=== PATIENT | female | born 1995 | race Caucasian/White ===

== ENCOUNTER 2020-04-13 11:02 | Outpatient (CLI) | payer MEDICAID, SELFPAY ==
[2020-04-13] VITALS (15 sets, daily range): BP systolic 116–139; BP diastolic 70–94; PULSE 51–127; BMI 31.6
[2020-04-13 11:46] LABS: Basophils Percent Auto 0.3 % (0.2-1.2); Eosinophils Absolute Auto 0.1 K/mm3 (0-0.3); Eosinophils Percent Auto 1.4 % (0-4.4); Hematocrit 37.7 % (37.0-47.0); Hemoglobin 12.7 g/dL (12.0-15.0); Immature Granulocyte Absolute 0.12 K/mm3 (0.00-0.031); Immature Granulocyte Percent A 1.3 % (0-0.5); Lymphocytes Absolute Auto 3.17 K/mm3 (0.9-3.2); Lymphocytes Percent Auto 33.7 % (18.3-44.2); Mean Corpuscular HGB Conc 33.7 g/dl (32-36); Mean Corpuscular Hemoglobin 29.2 pg (26-34); Mean Corpuscular Volume 86.7 fl (80-100); Monocytes Absolute Auto 0.8 K/mm3 (0.1-0.6); Neutrophils Absolute Auto 5.2 K/mm3 (1.3-6.7); Neutrophils Percent Auto 55.3 % (45.5-73.1); Platelet Count Result 162 k/mm3 (150-375); Red Blood Count 4.35 M/mm3 (4.2-5.4); Red Cell Distribution Width 13.5 % (11.5-14.5); White Blood Count 9.4 K/mm3 (4.5-10.0)
--- NOTE | 2020-04-13 11:57 | PC.NURSE ---
Off monitor to void. NST reactive. Will continue monitoring contractions. See OBIX documentation.
[2020-04-13 12:19] LABS: Add Urine Microscopic? NO; Appearance Urine Clear (Clear); Bilirubin Urine Negative (Negative); Blood Urine Negative (Negative); Color Urine Straw (Yellow); Glucose Urine UA Negative (Negative); Ketones Urine Negative (Negative); Leukocyte Esterase Ur Negative LEU/UL (Negative); Nitrate Urine Negative (Negative); Protein Urine Negative (Negative); Urobilinogen Urine Negative mg/dL (<2.0)
[2020-04-13 12:25] LABS: Alanine Aminotransferase 12 U/L (4-35); Albumin Level 3.4 g/dL (3.5-5.1); Alkaline Phosphatase 203 U/L (38-126); Anion Gap 8 mmol/L (8-16); Aspartate Amino Transferase 24 U/L (14-36); Bilirubin,Total 0.3 mg/dL (0.2-1.3); Blood Urea Nitrogen 6 mg/dL (7-17); Calcium 9.2 mg/dL (8.4-10.2); Carbon Dioxide 22 mmol/L (22-30); Chloride 105 mmol/L (98-107); Estimated Glomerular Filt Rate > 60; Glucose 75 mg/dL (65-105); Potassium 4.1 mmol/L (3.4-5.0); Sodium 135 mmol/L (137-145); Uric Acid 6.7 mg/dL (2.5-7.5)
[2020-04-13 12:51] LABS: Creatinine Urine 45.9 mg/dL; Total Protein Urine Random 17 mg/dL; Ur Ttl Prot Creatinine Ratio 0.37 mg/mg (0-0.20)
[2020-04-13] MEDS: BETAMETHASONE SOD PHOS/ACETATE 30 MG/5 ML VIAL 12 MG IM (13:44)
[2020-04-13] MEDS: NIFEdipine 10 MG CAPSULE PO (14:56)
[2020-04-13] MEDS: ACETAMINOPHEN 500 MG TABLET 1000 MG PO (15:51)
[2020-04-13] MEDS: CYCLOBENZAPRINE HCL 10 MG TABLET PO (15:54)
== END 2020-04-13 19:10 | disposition home or self-care (01) ==
LOC: ANHOBOP 11:10 → ANHOBPP 11:11
PROVIDERS: PCP Family Medicine; Visit Provider Obstetrics & Gynecology
DX: O13.9 Gestational [pregnancy-induced] hypertension without significant proteinuria, unspecified trimester (principal)
CPT/HCPCS: 36415; 59025; 80053; 81003; 82570; 84156; 84550; 85025; 96372; 99199; A9270; J0702

== ENCOUNTER 2020-04-14 13:39 | Outpatient (CLI) | payer MEDICAID, SELFPAY ==
[2020-04-14 14:21] VITALS: BP 121/79; PULSE 95
[2020-04-14] MEDS: BETAMETHASONE SOD PHOS/ACETATE 30 MG/5 ML VIAL 12 MG IM (14:23)
== END 2020-04-14 14:30 | disposition home or self-care (01) ==
LOC: ANHOBOP 13:48 → ANHOBPP 14:19
PROVIDERS: PCP Family Medicine; Visit Provider Obstetrics & Gynecology
DX: O13.9 Gestational [pregnancy-induced] hypertension without significant proteinuria, unspecified trimester (principal); Z3A.00 Weeks of gestation of pregnancy not specified
CPT/HCPCS: 81050; 82575; 84156; 96372; 99199; J0702

== ENCOUNTER 2020-04-14 13:51 | Outpatient (NON) | payer MEDICAID, SELFPAY ==
[2020-04-14 15:19] LABS: Collection Time Urine 24 HOURS
[2020-04-14 15:27] LABS: Patient Weight 162 Lbs
[2020-04-14 15:28] LABS: Creatinine Urine 55.2 mg/dL; Total Volume 24 Hour Urine 1900 ml
[2020-04-14 15:35] LABS: Creatinine Clearance Urine 105.8 ml/min (75-125)
[2020-04-14 15:36] LABS: Total Protein Urine 24 Hr 304 MG/DAY (28-141); Total Protein Urine Random 16 mg/dL
== END 2020-04-14 13:52 ==
PROVIDERS: PCP Family Medicine; Visit Provider Obstetrics & Gynecology
DX: O13.9 Gestational [pregnancy-induced] hypertension without significant proteinuria, unspecified trimester (principal); Z3A.00 Weeks of gestation of pregnancy not specified
CPT/HCPCS: 81050; 82575; 84156

== ENCOUNTER 2020-04-17 01:33 | Outpatient (CLI) | payer MEDICAID, SELFPAY ==
[2020-04-17 02:16] VITALS: BP 127/78; PULSE 54
[2020-04-17 02:31] VITALS: BP 127/81; PULSE 52
[2020-04-17 03:00] VITALS: TEMP 36.3; BMI 31.4
[2020-04-17] MEDS: ONDANSETRON HCL ODT 4 MG TABLET PO (03:06)
[2020-04-17 03:08] VITALS: PULSE 59; O2SAT 98
[2020-04-17 03:23] VITALS: BP 126/78; PULSE 52
[2020-04-17 03:26] LABS: Basophils Absolute Auto 0.1 K/mm3 (0.0-0.1); Basophils Percent Auto 0.7 % (0.2-1.2); Eosinophils Absolute Auto 0.1 K/mm3 (0-0.3); Eosinophils Percent Auto 1.1 % (0-4.4); Hematocrit 35.3 % (37.0-47.0); Hemoglobin 11.9 g/dL (12.0-15.0); Immature Granulocyte Absolute 0.68 K/mm3 (0.00-0.031); Immature Granulocyte Percent A 5.6 % (0-0.5); Immature Platelet Fraction Pct 22.3 % (0.9-11.2); Lymphocytes Absolute Auto 3.09 K/mm3 (0.9-3.2); Lymphocytes Percent Auto 25.3 % (18.3-44.2); Mean Corpuscular HGB Conc 33.7 g/dl (32-36); Mean Corpuscular Hemoglobin 29.5 pg (26-34); Mean Corpuscular Volume 87.4 fl (80-100); Mean Platelet Volume 13.8 fl (7.4-10.4); Monocytes Absolute Auto 1.3 K/mm3 (0.1-0.6); Monocytes Percent Auto 10.7 % (2.6-8.5); Neutrophils Absolute Auto 6.9 K/mm3 (1.3-6.7); Neutrophils Percent Auto 56.6 % (45.5-73.1); Nucleated Red Blood Cells Absolute Auto 0.1 K/mm3 (0.0-0.012); Platelet Count Result 165 k/mm3 (150-375); Red Blood Count 4.04 M/mm3 (4.2-5.4); Red Cell Distribution Width 13.7 % (11.5-14.5); White Blood Count 12.2 K/mm3 (4.5-10.0)
[2020-04-17 03:31] VITALS: BP 127/77; PULSE 52
[2020-04-17 03:37] LABS: Alanine Aminotransferase 12 U/L (4-35); Albumin Level 3.1 g/dL (3.5-5.1); Alkaline Phosphatase 188 U/L (38-126); Anion Gap 5 mmol/L (8-16); Aspartate Amino Transferase 27 U/L (14-36); Bilirubin,Total 0.3 mg/dL (0.2-1.3); Blood Urea Nitrogen 18 mg/dL (7-17); Calcium 8.9 mg/dL (8.4-10.2); Carbon Dioxide 25 mmol/L (22-30); Chloride 105 mmol/L (98-107); Estimated Glomerular Filt Rate > 60; Glucose 75 mg/dL (65-105); Potassium 4.2 mmol/L (3.4-5.0); Sodium 135 mmol/L (137-145); Uric Acid 7.5 mg/dL (2.5-7.5)
[2020-04-17 04:26] LABS: Add Urine Microscopic? YES; Appearance Urine Clear (Clear); Bilirubin Urine Negative (Negative); Blood Urine Negative (Negative); Color Urine Colorless (Yellow); Glucose Urine UA Negative (Negative); Ketones Urine Negative (Negative); Leukocyte Esterase Ur Trace LEU/UL (NEGATIVE); Nitrate Urine Negative (Negative); Protein Urine Negative (Negative); RBC Urine 0-2 /hpf (0-2); Specific Grav Ur 1.006 (1.001-1.035); Squamous Epithelial Cell Urine Rare /hpf (Few); Urobilinogen Urine Negative mg/dL (<2.0)
== END 2020-04-17 04:58 | disposition home or self-care (01) ==
LOC: ANHOBPP 04:53 → ANHOBOP 04-19 13:04 → ANHOBPP 04-19 13:04
PROVIDERS: Obstetrics & Gynecology; PCP Family Medicine; Visit Provider Obstetrics & Gynecology
DX: O13.9 Gestational [pregnancy-induced] hypertension without significant proteinuria, unspecified trimester (principal); Z3A.00 Weeks of gestation of pregnancy not specified
CPT/HCPCS: 36415; 80053; 81001; 84550; 85025; 85055; 87086; 87088; 99199; A9270

== ENCOUNTER 2020-04-26 06:06 | Inpatient (IN) | payer MEDICAID, SELFPAY ==
[2020-04-26] VITALS (183 sets, daily range): BP systolic 60–175; BP diastolic 34–143; PULSE 25–243; RESP 13–22; TEMP 36.1–36.8; O2SAT 94–100; BMI 32.7
[2020-04-26 07:00] LABS: Basophils Percent Auto 0.3 % (0.2-1.2); Eosinophils Absolute Auto 0.1 K/mm3 (0-0.3); Eosinophils Percent Auto 0.9 % (0-4.4); Hematocrit 38.9 % (37.0-47.0); Hemoglobin 13.1 g/dL (12.0-15.0); Lymphocytes Absolute Auto 3.27 K/mm3 (0.9-3.2); Mean Corpuscular HGB Conc 33.7 g/dl (32-36); Mean Corpuscular Hemoglobin 29.3 pg (26-34); Mean Platelet Volume 13.3 fl (7.4-10.4); Monocytes Absolute Auto 0.6 K/mm3 (0.1-0.6); Monocytes Percent Auto 6.3 % (2.6-8.5); Neutrophils Absolute Auto 5.5 K/mm3 (1.3-6.7); Neutrophils Percent Auto 57.5 % (45.5-73.1); Platelet Count Result 161 k/mm3 (150-375); Red Blood Count 4.47 M/mm3 (4.2-5.4); Red Cell Distribution Width 14.4 % (11.5-14.5); White Blood Count 9.6 K/mm3 (4.5-10.0)
[2020-04-26] MEDS: OXYTOCIN 30 UNITS/NS 500 ML 30 UNITS/500 ML BAG 6 UNITS IV CONT (07:11)
[2020-04-26] MEDS: LACTATED RINGERS 1,000 ML 125 ML IV CONT ×2 (07:11→07:39)
[2020-04-26 07:14] LABS: Alanine Aminotransferase 16 U/L (4-35); Albumin Level 3.2 g/dL (3.5-5.1); Alkaline Phosphatase 204 U/L (38-126); Anion Gap 7 mmol/L (8-16); Aspartate Amino Transferase 27 U/L (14-36); Bilirubin,Total 0.3 mg/dL (0.2-1.3); Blood Urea Nitrogen 13 mg/dL (7-17); Calcium 9.1 mg/dL (8.4-10.2); Carbon Dioxide 21 mmol/L (22-30); Chloride 106 mmol/L (98-107); Estimated Glomerular Filt Rate > 60; Glucose 141 mg/dL (65-105); Sodium 134 mmol/L (137-145); Uric Acid 7.8 mg/dL (2.5-7.5)
--- NOTE | 2020-04-26 07:29 | WPDOBADMIT ---
Obstetrics - Admit Note Admission Note: record reviewed. No pertinent additions to the history and/or any subsequent changes in the physical findings that are not consistent with the expected course of the were found. Additions to the history and/or subsequent changes in the physical findings follow. G1 at 37.0 with di/di twins, SGA, mild PreE. GBS neg. Pitocin, epidural, magnesium. Uric acid elevated. Remainder labs normal. AROM done, 490/0 posterior. clear fluid. FHT Category 1 x2.
--- NOTE | 2020-04-26 07:41 | WPDANESEPPF ---
Anes - Initial Pre Proc Eval Procedure: labor epidural Date/Time: 04/26/20 07:41 Surgeon: Kayce Rivera MD Pre Op Diagnosis: labor pain Pre Op Diagnosis: IOL Patient Data Age: 24 Gender: F Height: Weight: Last Vital Signs Pulse 87 04/26/20 07:40 BP 142/80 H 04/26/20 07:40 Pulse Ox 97 04/26/20 07:41 Allergies Allergy/AdvReac Type Severity Reaction Status Date / Time No Known Allergies Allergy Verified 04/16/20 14:21 Home Medications Medication Instructions Recorded Confirmed Type PNV cmb#95-ferrous fumarate-FA 1 tablet PO DAILY 04/13/20 04/13/20 History [] aspirin 81 mg PO DAILY 04/13/20 04/13/20 History ferrous sulfate 143 mg PO DAILY 04/13/20 04/13/20 History ondansetron HCl [Zofran] 4 mg PO Q6H PRN 04/16/20 04/16/20 History nitrofurantoin monohyd/m-cryst 100 mg PO Q12H #14 cap 04/17/20 Rx [Macrobid] Laboratory Tests 04/26/20 04/26/20 04/26/20 06:48 06:48 06:48 WBC 9.6 K/mm3 K/mm3 (4.5-10.0) RBC 4.47 M/mm3 M/mm3 (4.2-5.4) Hgb 13.1 g/dL g/dL (12.0-15.0) Hct 38.9 % % (37.0-47.0) MCV 87.0 fl fl (80-100) MCH 29.3 pg pg (26-34) MCHC 33.7 g/dl g/dl (32-36) RDW 14.4 % % (11.5-14.5) Plt Count 161 k/mm3 k/mm3 (150-375) MPV 13.3 fl H fl (7.4-10.4) Immature Gran % (Auto) 1.0 % H % (0-0.5) Neut % (Auto) 57.5 % % (45.5-73.1) Lymph % (Auto) 34.0 % % (18.3-44.2) [place] % (Auto) 6.3 % % (2.6-8.5) Eos % (Auto) 0.9 % % (0-4.4) Baso % (Auto) 0.3 % % (0.2-1.2) Lymph # (Auto) 3.27 K/mm3 H K/mm3 (0.9-3.2) [place] # (Auto) 0.6 K/mm3 K/mm3 (0.1-0.6) Eos # (Auto) 0.1 K/mm3 K/mm3 (0-0.3) Baso # (Auto) 0.0 K/mm3 K/mm3 (0.0-0.1) Abs Immat Gran (auto) 0.10 K/mm3 H K/mm3 (0.00-0.031) Absolute Neuts (auto) 5.5 K/mm3 K/mm3 (1.3-6.7) Absolute Nucleated RBC 0.0 K/mm3 K/mm3 (0.0-0.012) Nucleated RBC % 0.0 % % (0.0-0.2) % Immature Plt Fraction 19.0 % H % (0.9-11.2) Sodium 134 mmol/L L mmol/L (137-145) Potassium 4.0 mmol/L mmol/L (3.4-5.0) Chloride 106 mmol/L mmol/L (98-107) Carbon Dioxide 21 mmol/L L mmol/L (22-30) Anion Gap 7 mmol/L L mmol/L (8-16) BUN 13 mg/dL D mg/dL (7-17) Creatinine 0.90 mg/dL mg/dL (0.7-1.0) Estim Creat Clear Calc Not Reportable Estimated GFR > 60 (59 - ) Glucose 141 mg/dL H mg/dL (65-105) Uric Acid 7.8 mg/dL H mg/dL (2.5-7.5) Calcium 9.1 mg/dL mg/dL (8.4-10.2) Total Bilirubin 0.3 mg/dL mg/dL (0.2-1.3) AST 27 U/L U/L (14-36) ALT 16 U/L U/L (4-35) Alkaline Phosphatase 204 U/L H U/L (38-126) Total Protein 6.0 g/dL L g/dL (6.3-8.2) Albumin 3.2 g/dL L g/dL (3.5-5.1) RPR Pending Patient hx anesthesia problems: none Family hx anesthesia problems: none PMFSH Past Medical History Medical History (Updated 04/26/20 @ 07:42 by Yasir Montes DO) Pre-eclampsia Family History Family History (Updated 04/16/20 @ 14:26 by Lima Matos RN) Grandparent Diabetes mellitus Cancer PTSD (post-traumatic stress disorder) Mother Seizures Other Schizoaffective disorder Social History Social History Substance use: never Spiritual care concerns: No Anes - Eval Final PreProcedure Day of Procedure 04/26/20 07:41 Patient weight: obese ASA classification: III Anesthesia type and monitoring: regional epidural Informed Consent: The patient's anesthetic plan and its attendant risks and benefits were discussed with the patient/family/POA. Questions were solicited and answers provided to the satisfaction of the patient/family/POA.
[2020-04-26] MEDS: MAGNESIUM SULF 4 GM/WATER100ML 4 GM/100 ML BAG IVPB (08:44)
[2020-04-26] MEDS: MAGNESIUM SULF 20GM/WATER500ML 500 ML 50 MG IV CONT ×2 (09:12→23:07)
[2020-04-26 13:03] LABS: Rapid Plasma Reagin Non-Reactive (NonReactive)
[2020-04-26] MEDS: fentaNYL CITRATE INJ (*CRX) 100 MCG/2 ML VIAL 50 MCG IV PUSH (13:11)
--- NOTE | 2020-04-26 16:35 | P.PCNOB_ITS ---
OB - Delivery Note Procedure Delivery date: 04/26/20 Procedure: x2 events: Pre-Eclampsia Intrapartal events: Mild Preeclampsia and Multiple Gestation Induction method: AROM and per pitocin protocol Delivery monitor: external FHT and external uterine Route of delivery: Episiotomy description: None Laceration Description: Periurethral and Vaginal - 2nd Degree Delivery repair: vicryl Specimen: Yes (cord blood x2, placenta to pathology) Quantitative Blood Loss (ml): 600 Anesthesia type: Epidural Complications: none Narrative: In the operating room with double setup, and with adequate expulsive efforts by the mother, the Baby A's head was delivered OA. The baby's anterior shoulder was delivered under the pubic symphysis without difficulty. The posterior shoulder and the rest of the baby delivered without difficulty. The infant was placed on the mothers chest and suctioned and stimulated. The cord was clamped and cut after 30 seconds. THe US was used to verify Baby B was presenting vertex as well. The head was well applied to the cervix and AROM was performed with clear fluid. Cervix was 8cm, but was complete again within a minute and pushing resumed. Baby B's head was delivered SHANNAN. The anterior shoulder and the rest of the baby delivered easily. Mother and babies both stable. The placentas delivered spontaneously. Pitocin and hemabate were given for bleeding and uterine tone was firm after a few minutes. A small second degree and a right periclitoral laceration were repaired in normal fashion. [place] Baby Date of : 04/26/20 Time of : 15:11 Weeks of gestation at delivery: 37 gender: Male Weight (pounds): 4 Weight (ounces): 9 presentation: vertex position: Left Occiput Anterior Placenta delivery description: Spontaneous cord vessel description: 3 Vessels Narrative: Baby B born at 1518, boy, weight 5-12, OA.
[2020-04-26] MEDS: fentaNYL CITRATE INJ (*CRX) 100 MCG/2 ML VIAL IV PUSH (17:03)
--- NOTE | 2020-04-26 17:20 | PM.OBPNVD ---
OB - PN: Subj Subjective Date/time seen: 04/26/20 17:20 Addendum to delivery note. Prior to my leaving the hospital, the RN noted a hematoma. At bedside to evaluate. 8-9cm hematoma of right labia minora extending to labia majora, taught, expanding in size over 10 min watching. Evacuation of vulvar hematoma done, see procedure note. Following procedure, area of hematoma was no longer taut, was about 5-6cm in size, still very edematous, but not expanding or actively bleeding out of the drained area. Ice applied. JOSÉ ANTONIO Dempsey updated. Chavez in. OB - PN: Obj Data Labs CBC & Chem 7: 04/26/20 06:48 04/26/20 06:48 Labs: Laboratory Results - last 24 hr 04/26/20 04/26/20 04/26/20 06:48 06:48 06:48 WBC 9.6 RBC 4.47 Hgb 13.1 Hct 38.9 MCV 87.0 MCH 29.3 MCHC 33.7 RDW 14.4 Plt Count 161 MPV 13.3 H Immature Gran % (Auto) 1.0 H Neut % (Auto) 57.5 Lymph % (Auto) 34.0 [place] % (Auto) 6.3 Eos % (Auto) 0.9 Baso % (Auto) 0.3 Lymph # (Auto) 3.27 H [place] # (Auto) 0.6 Eos # (Auto) 0.1 Baso # (Auto) 0.0 Abs Immat Gran (auto) 0.10 H Absolute Neuts (auto) 5.5 Absolute Nucleated RBC 0.0 Nucleated RBC % 0.0 % Immature Plt Fraction 19.0 H Sodium Potassium Chloride Carbon Dioxide Anion Gap BUN Creatinine Estim Creat Clear Calc Estimated GFR Glucose Uric Acid Calcium Total Bilirubin AST ALT Alkaline Phosphatase Total Protein Albumin RPR Non-reactive Blood Type O Positive Antibody Screen Negative 04/26/20 06:48 WBC RBC Hgb Hct MCV MCH MCHC RDW Plt Count MPV Immature Gran % (Auto) Neut % (Auto) Lymph % (Auto) [place] % (Auto) Eos % (Auto) Baso % (Auto) Lymph # (Auto) [place] # (Auto) Eos # (Auto) Baso # (Auto) Abs Immat Gran (auto) Absolute Neuts (auto) Absolute Nucleated RBC Nucleated RBC % % Immature Plt Fraction Sodium 134 L Potassium 4.0 Chloride 106 Carbon Dioxide 21 L Anion Gap 7 L BUN 13 D Creatinine 0.90 Estim Creat Clear Calc Not Reportable Estimated GFR > 60 Glucose 141 H Uric Acid 7.8 H Calcium 9.1 Total Bilirubin 0.3 AST 27 ALT 16 Alkaline Phosphatase 204 H Total Protein 6.0 L Albumin 3.2 L RPR Blood Type Antibody Screen OB - PN A/P Time Spent With Patient Time: Total time spent is greater than 50% in coordination of care (as documented) at patient's floor/unit and/or counseling patient:
[2020-04-26] MEDS: ONDANSETRON INJ 4 MG/2 ML VIAL IV PUSH (17:23)
--- NOTE | 2020-04-26 17:25 | P.OP_ITS ---
Procedure Note - Detailed Date of procedure: 04/26/20 Pre-op diagnosis: IOL Post-op diagnosis: same Procedure performed: INcision and drainage of right labial hematoma Description of procedure: Due to 9cm enlarging hematoma within the hour after delivery, the decision was made to drain the hematoma bedside. Fentanyl IV was given. 3cc local instilled at fluctuant area of hematoma and stab incision made with 11 blade. About 100cc of blood under pressure drained. Following this, the hematoma area was no longer taut, though significant edema remained. The hematoma was watched for 10 more minutes and was noted to not be expanding anymo re, the skin over it remained non-taut, and the incision was not bleeding. Packing was not done due to hemostasis at this time. Chavez was placed to stay in overnight. Implants: none Anesthesia: local Surgeon: Kayce Rivera MD Estimated blood loss (mL): 100 Drains: No Packing: No Pathology: none sent Complications: No immediate complications Condition: stable Disposition: floor
[2020-04-26] MEDS: IBUPROFEN 600 MG TABLET PO (18:19)
[2020-04-26] MEDS: HYDROcodone/acetaminophen (*CRX) 5-325 MG TABLET 1 TAB PO (18:20)
--- NOTE | 2020-04-26 19:36 | PM.IMHP ---
H&P: HPI History of Present Illness Date/Time: 04/26/20 19:36 Chief Complaint: Vulvar pain Narrative: Selena Barnett is a 24 year old female who is in the immediate . Who had a hematoma on the right roopa vulva. After the hematoma was drained by another provider she was observed. Over several hours the hematoma expanded again. The patient experiencing increasing pain in the right vulva. There has been normal vaginal bleeding. The patient did experience some hypotension and dizziness at 1 point during her recovery. She is on magnesium sulfate. She has not lost more than 700 cc of blood at this point. She denies any fever or chills. She denies any nausea, vomiting. Review of Systems Constitutional: Constitutional: Reports no additional constitutional complaints, Denies fatigue, Denies headache(s), Denies lethargy and Denies weakness Eyes: Eyes: Reports no additional eye complaints, Denies blurry vision and Denies photophobia ENT: Reports as per HPI, Denies headache(s) and Denies neck pain Cardiovascular: Cardiovascular: Denies chest pain, Denies diaphoresis, Denies leg edema, Denies palpitations and Denies dyspnea Respiratory: Respiratory: Denies hemoptysis, Denies dyspnea and Denies wheezing Gastrointestinal: Gastrointestinal: Denies abdominal pain, Denies melena, Denies bloating, Denies hematochezia, Denies nausea and Denies vomiting Genitourinary: Genitourinary: Reports no additional female genitourinary complaints Musculoskeletal: Musculoskeletal: Denies joint swelling, Denies neck pain, Denies numbness and Denies stiffness Neurologic: Denies Abnormal speech present, Denies confusion, Denies headache(s), Denies numbness and Denies weakness Psychiatric: Psychiatric: Denies anxiety, Denies confusion, Denies depression, Denies homicidal ideation and Denies suicidal ideation Endocrine: Endocrine: Denies fatigue and Denies palpitations Allergic/Immunologic: Allergic/Immunologic: Denies wheezing PMFSH Past Medical History Medical History (Updated 04/26/20 @ 19:41 by Toan Coronel MD) Pre-eclampsia Family History Family History (Updated 04/16/20 @ 14:26 by Lima Matos RN) Grandparent Diabetes mellitus Cancer PTSD (post-traumatic stress disorder) Mother Seizures Other Schizoaffective disorder Social History Social History Smoking status: Never smoker Second hand tobacco smoke exposure: No Substance use: never Spiritual care concerns: No Meds Home Medications and Allergies Home Medications Medication Instructions Recorded Confirmed Type PNV cmb#95-ferrous fumarate-FA 1 tablet PO DAILY 04/13/20 04/26/20 History [] aspirin 81 mg PO DAILY 04/13/20 04/26/20 History ferrous sulfate 143 mg PO DAILY 04/13/20 04/26/20 History ondansetron HCl [Zofran] 4 mg PO Q6H PRN 04/16/20 04/16/20 History nitrofurantoin monohyd/m-cryst 100 mg PO Q12H #14 cap 04/17/20 04/26/20 Rx [Macrobid] Allergies Allergy/AdvReac Type Severity Reaction Status Date / Time No Known Allergies Allergy Verified 04/16/20 14:21 Vital Signs Vital Signs - 24 hr 04/26/20 06:33 04/26/20 06:45 04/26/20 07:00 Temperature Pulse Rate 90 86 97 Respiratory Rate Blood Pressure 137/96 H 135/90 141/92 H Pulse Oximetry 04/26/20 07:16 04/26/20 07:26 04/26/20 07:27 Temperature Pulse Rate 75 84 Respiratory Rate Blood Pressure 147/98 H 163/97 H Pulse Oximetry 97 04/26/20 07:29 04/26/20 07:31 04/26/20 07:33 Temperature Pulse Rate 81 85 Respiratory Rate Blood Pressure 152/110 H 131/96 H Pulse Oximetry 99 04/26/20 07:36 04/26/20 07:38 04/26/20 07:39 Temperature Pulse Rate 87 85 Respiratory Rate Blood Pressure 151/93 H 151/82 H Pulse Oximetry 97 04/26/20 07:40 04/26/20 07:41 04/26/20 07:42 Temperature Pulse Rate 87 85 Respiratory Rate Blood Pressure 142/80 H 135/83 Pulse Oximetry 97 04/26/20 07:45
--- NOTE | 2020-04-26 19:49 | WPDANESEPP ---
Anes - Eval Pre Procedure Procedure: I and D right labial hematoma Date/Time: 04/26/20 19:49 Surgeon: Berna Preop Diagnosis: right labial hematoma Pre Op Diagnosis: IOL Patient Data Age: 24 Gender: F Height: 1.52 m Weight: 76 kg Last Vital Signs Temp 36.1 C L 04/26/20 17:00 Pulse 91 04/26/20 19:45 Resp 16 04/26/20 08:45 BP 128/96 H 04/26/20 19:45 Pulse Ox 100 04/26/20 19:48 Allergies Allergy/AdvReac Type Severity Reaction Status Date / Time No Known Allergies Allergy Verified 04/16/20 14:21 Home Medications Medication Instructions Recorded Confirmed Type PNV cmb#95-ferrous fumarate-FA 1 tablet PO DAILY 04/13/20 04/26/20 History [] aspirin 81 mg PO DAILY 04/13/20 04/26/20 History ferrous sulfate 143 mg PO DAILY 04/13/20 04/26/20 History ondansetron HCl [Zofran] 4 mg PO Q6H PRN 04/16/20 04/16/20 History nitrofurantoin monohyd/m-cryst 100 mg PO Q12H #14 cap 04/17/20 04/26/20 Rx [Macrobid] Laboratory Tests 04/26/20 04/26/20 04/26/20 06:48 06:48 06:48 WBC 9.6 K/mm3 K/mm3 (4.5-10.0) RBC 4.47 M/mm3 M/mm3 (4.2-5.4) Hgb 13.1 g/dL g/dL (12.0-15.0) Hct 38.9 % % (37.0-47.0) MCV 87.0 fl fl (80-100) MCH 29.3 pg pg (26-34) MCHC 33.7 g/dl g/dl (32-36) RDW 14.4 % % (11.5-14.5) Plt Count 161 k/mm3 k/mm3 (150-375) MPV 13.3 fl H fl (7.4-10.4) Immature Gran % (Auto) 1.0 % H % (0-0.5) Neut % (Auto) 57.5 % % (45.5-73.1) Lymph % (Auto) 34.0 % % (18.3-44.2) [place] % (Auto) 6.3 % % (2.6-8.5) Eos % (Auto) 0.9 % % (0-4.4) Baso % (Auto) 0.3 % % (0.2-1.2) Lymph # (Auto) 3.27 K/mm3 H K/mm3 (0.9-3.2) [place] # (Auto) 0.6 K/mm3 K/mm3 (0.1-0.6) Eos # (Auto) 0.1 K/mm3 K/mm3 (0-0.3) Baso # (Auto) 0.0 K/mm3 K/mm3 (0.0-0.1) Abs Immat Gran (auto) 0.10 K/mm3 H K/mm3 (0.00-0.031) Absolute Neuts (auto) 5.5 K/mm3 K/mm3 (1.3-6.7) Absolute Nucleated RBC 0.0 K/mm3 K/mm3 (0.0-0.012) Nucleated RBC % 0.0 % % (0.0-0.2) % Immature Plt Fraction 19.0 % H % (0.9-11.2) Sodium Potassium Chloride Carbon Dioxide Anion Gap BUN Creatinine Estim Creat Clear Calc Estimated GFR Glucose Uric Acid Calcium Total Bilirubin AST ALT Alkaline Phosphatase Total Protein Albumin RPR Non-reactive (NonReactive) Blood Type O Positive Antibody Screen Negative 04/26/20 06:48 WBC RBC Hgb Hct MCV MCH MCHC RDW Plt Count MPV Immature Gran % (Auto) Neut % (Auto) Lymph % (Auto) [place] % (Auto) Eos % (Auto) Baso % (Auto) Lymph # (Auto) [place] # (Auto) Eos # (Auto) Baso # (Auto) Abs Immat Gran (auto) Absolute Neuts (auto) Absolute Nucleated RBC Nucleated RBC % % Immature Plt Fraction Sodium 134 mmol/L L mmol/L (137-145) Potassium 4.0 mmol/L mmol/L (3.4-5.0) Chloride 106 mmol/L mmol/L (98-107) Carbon Dioxide 21 mmol/L L mmol/L (22-30) Anion Gap 7 mmol/L L mmol/L (8-16) BUN 13 mg/dL D mg/dL (7-17) Creatinine 0.90 mg/dL mg/dL (0.7-1.0) Estim Creat Clear Calc Not Reportable Estimated GFR > 60 (59 - ) Glucose 141 mg/dL H mg/dL (65-105) Uric Acid 7.8 mg/dL H mg/dL (2.5-7.5) Calcium 9.1 mg/dL mg/dL (8.4-10.2) Total Bilirubin 0.3 mg/dL mg/dL (0.2-1.3) AST 27 U/L U/L (14-36) ALT 16 U/L U/L (4-35) Alkaline Phosphatase 204 U/L H U/L (38-126) Total Protein 6.
[2020-04-26] MEDS: ceFAZolin SODIUM 1 GM VIAL 2 GM IV PUSH (20:52)
[2020-04-26] MEDS: LIDO 1%/EPINEPHRINE 1:100,000 50 ML VIAL INFILTRATE (21:09)
--- NOTE | 2020-04-26 21:27 | PM.PROC ---
Procedure Note - Detailed Date of procedure: 04/26/20 Pre-op diagnosis: hematoma of the vulva Post-op diagnosis: same Procedure performed: Incision, evacuation and hemostasis of a vulvar hematoma Description of procedure: The patient is taken operating room. She was prepped and draped in dorsal lithotomy position after induction of mac anesthesia. The skin was injected around the hematoma with lidocaine. A 7-8cm incision was made along the length of the hematoma. Large clots were removed from they inside of the hematoma. The hematoma cavity extended up into the mons pubis. The active bleeding area was seen in the medial wall of the hematoma cavity. Sutures were placed in this area was made hemostatic. These were [id number] sutures of 0 Vicryl. The cavity was irrigated with copious amounts of normal saline. A large locking suture of 0 Vicryl was placed along the length of the incision to close it. It incorporated as much deep tissues could be reached. A [id number] suture was also placed at the bleeding posterior introitus repair. Anesthesia: MAC Surgeon: Toan Coronel MD Estimated blood loss (mL): 200 Drains: No Packing: No Complications: No immediate complications Condition: stable Disposition: floor Findings: Measured by the nurse with a tape measure the hematoma was 10 x 5 cm, some of this was edema from the lateral labia, there were clots filling the hematoma defect, there was a large clot in the vagina encompassing approximately 200 cc of blood that was not blood lost in the case.
[2020-04-26] MEDS: LACTATED RINGERS 1,000 ML 75 ML IV CONT (23:06)
[2020-04-27] VITALS (16 sets, daily range): BP systolic 93–159; BP diastolic 51–95; PULSE 86–127; RESP 12–18; TEMP 36.5–37.6; O2SAT 91–99
--- NOTE | 2020-04-27 03:05 | PC.NURSE ---
Addendum entered by Mahesh Portillo RN 04/27/20 03:09: 2010 THIS NOTE SHOULD BE TIMED 2009 Original Note: Patient to OR for I&D of labial hematoma by OR staff. SEE OBIX documentation.
--- NOTE | 2020-04-27 03:12 | PC.NURSE ---
Addendum entered by Mahesh Portillo RN 04/27/20 03:13: 2205 04/26/20 NOTE SHOULD BE TIMED AT THIS TIME. Original Note: Report from OR. Pt to remain on Labor floor per Dr. Coronel request for monitoring.
[2020-04-27] MEDS: HYDROcodone/acetaminophen (*CRX) 5-325 MG TABLET 1 TAB PO ×2 (04:36→13:49)
[2020-04-27 05:08] LABS: Hematocrit 22.8 % (37.0-47.0); Hemoglobin 7.7 g/dL (12.0-15.0)
[2020-04-27] MEDS: BENZOCAINE 20% AER SPR (*SP) 56 GM CAN 1 SPRAY TOPICAL (07:37)
[2020-04-27] MEDS: WITCH HAZEL 40 PADS 1 PAD TOPICAL (07:37)
[2020-04-27] MEDS: IBUPROFEN 600 MG TABLET PO ×3 (07:53→19:47)
--- NOTE | 2020-04-27 07:56 | WPDANESPN ---
Anes - Prog Note Post-Op Date/Time: 04/27/20 07:56 Cardiovascular status: normal Respiratory status: normal Airway patency: baseline Mental status: baseline Post-Op hydration status: normal Vital Signs: Last Vital Signs Temp 37.6 C 04/27/20 05:08 Pulse 117 H 04/27/20 06:59 Resp 16 04/27/20 05:02 BP 128/71 04/27/20 06:59 Pulse Ox 100 04/26/20 21:56 Pain Score (VAS): no complaints I/O: Intake & Output 04/26/20 04/26/20 04/27/20 15:59 23:59 07:59 Intake Total 100 1500 1751 Output Total 1360 2400 Balance 100 140 -649 Laboratory Tests 04/27/20 04:38 04/26/20 06:48 04/26/20 04/26/20 04/27/20 06:48 06:48 04:38 Hgb 7.7 L D Hct 22.8 L RPR Non-reactive Crossmatch See Detail Post-procedural complaints: none Patient Feedback: Patient satisfied with anesthetic care.
--- NOTE | 2020-04-27 07:57 | PC.NURSE ---
Dr. Rivera in to see and assess pt.
--- NOTE | 2020-04-27 07:57 | WPDANLDPN2 ---
Anes-Prog Note L&D Date/Time: 04/27/20 07:57 Comfortable throughout: labor and delivery Neuraxial method: epidural Neuro status: Neuro function grossly intact. Cardiovascular status: normal Respiratory status: normal Airway patency: baseline Mental status: baseline Post-Op hydration status: normal Vital Signs: Last Vital Signs Temp 37.6 C 04/27/20 05:08 Pulse 117 H 04/27/20 06:59 Resp 16 04/27/20 05:02 BP 128/71 04/27/20 06:59 Pulse Ox 100 04/26/20 21:56 Pain score (VAS): no complaints I/O: Intake & Output 04/26/20 04/26/20 04/27/20 15:59 23:59 07:59 Intake Total 100 1500 1751 Output Total 1360 2400 Balance 100 140 -649 Post-procedural complaints: none Patient feedback: Patient satisfied with anesthetic care.
--- NOTE | 2020-04-27 08:01 | P.PNOB_ITS ---
OB - PN: Subj Subjective Date/time seen: 04/27/20 08:01 Patient comments: pain well controlled baby status: other (baby A doing well, B doing well but not eating as well.) feeding status: breast and bottle feeding Narrative: Last night went to OR for evacuation of hematoma per Dr. Coronel. Overnight did well. UOP 1600cc/about 10 hours. BPs variable, will be increased when excitable. She is anxious to be up and about. Hgb dropped from 13 to 7 overall. She has a mild HALE that just started this am. Per RN appearance of right labia improved overnight. Now some swelling in left labia as well. OB - PN: Obj Data Labs CBC & Chem 7: 04/27/20 04:38 04/26/20 06:48 Labs: Laboratory Results - last 24 hr 04/26/20 04/26/20 04/27/20 06:48 06:48 04:38 Hgb 7.7 L D Hct 22.8 L RPR Non-reactive Crossmatch See Detail OB - PN A/P Plan day: 1 Comments: Twins, preE, right labial hematoma mag off this am jimenez to stay in until at least this evening, will reeval at 4p will monitor BPs- somewhat labile, may need antihypertensive. Will transfuse 2 units pRBCs given drop of almost half blood volume. Discussed RBA. Healing will be faster and she will be better able to care for her babies. Discussed she needs to rest and remain in bed most of day to help vulvar edema. May do bed bath and wash up at sink. Continue ice continuously. Repeat CBC 2 hours after transfusion. Discussed POC with current RNs, pt, and director industrial relations. Time Spent With Patient Time: Total time spent is greater than 50% in coordination of care (as documented) at patient's floor/unit and/or counseling patient: Exam Const: General: cooperative, alert and awake Orientation/consciousness: oriented to person, oriented to place and oriented to time GI: Inspection: normal to inspection GI Palp: Yes Other GI palpation findings present (Fundus firm at umbilicus) : External Female Exam: lesion (right labial incision intact. ) and other (bilateral labia edematous with some ecchymosis near clitoris. )
--- NOTE | 2020-04-27 08:10 | PC.NURSE ---
Pt transferred to OB room 281 per bed with personal belongings and both twins.
[2020-04-27] MEDS: SODIUM CHLORIDE 0.9% IV 1,000 ML 125 ML (08:44)
--- NOTE | 2020-04-27 09:09 | OBPPTRN ---
0811 Patient transferred to post room #281 via bed. Oriented to unit, room, information board, rooming in, admission packet and security measures. Patient verbalizes understanding.
--- NOTE | 2020-04-27 12:33 | PC.NURSE ---
1315 note; nurse observed baby B at breast earlier today. Baby initially latched shallow; nurse assisted mother to get infant to deeper latch, mother reported as tuggy . baby maintained latch and demonstrated very vigorous, rhythmic sucking. Mother alternates sides this baby nurses on. Baby A has not latched to feed until a feeding this morning; mother reports he took a little formula, then attempted to latch, and she reports he did nurse; pt's nurse states baby was latched but was not sucking when she observed the feeding, only holding nipple in his mouth. Baby then given more formula. Mother will continue to nurse baby B q feeding, and will attempt briefly with Baby A, but then continue regular formula feedings for him. Mother has asked about pumping; She is tired and has received a blood transfusion today. Breast pump brought in for mother to start pumping later today. Pt's sister present. Nurse reviewed with the sister, pump set up and suggestion that mother pump one time this afternoon a little later, and then again tonight, and then re-evaluate tomorrow to determine pumping needs. Today, mother needs more rest, and baby B is nursing effectively. Pt's sister in agreement with this plan.
[2020-04-27] MEDS: HYDROcodone/acetaminophen (*CRX) 10-325 MG TABLET 1 TAB PO ×2 (16:35→19:48)
[2020-04-27] MEDS: DOCUSATE SODIUM 100 MG CAPSULE PO (16:35)
[2020-04-27] MEDS: POLYSACCHARIDE IRON COMPLEX 150 MG CAPSULE PO (16:35)
[2020-04-27 19:47] LABS: Basophils Percent Auto 0.3 % (0.2-1.2); Eosinophils Absolute Auto 0.1 K/mm3 (0-0.3); Eosinophils Percent Auto 0.9 % (0-4.4); Hematocrit 27.2 % (37.0-47.0); Hemoglobin 9.2 g/dL (12.0-15.0); Immature Granulocyte Absolute 0.07 K/mm3 (0.00-0.031); Immature Granulocyte Percent A 0.7 % (0-0.5); Immature Platelet Fraction Pct 10.3 % (0.9-11.2); Lymphocytes Absolute Auto 2.62 K/mm3 (0.9-3.2); Lymphocytes Percent Auto 25.3 % (18.3-44.2); Mean Corpuscular HGB Conc 33.8 g/dl (32-36); Mean Corpuscular Volume 88.6 fl (80-100); Mean Platelet Volume 12.1 fl (7.4-10.4); Monocytes Absolute Auto 0.9 K/mm3 (0.1-0.6); Monocytes Percent Auto 8.9 % (2.6-8.5); Neutrophils Absolute Auto 6.6 K/mm3 (1.3-6.7); Neutrophils Percent Auto 63.9 % (45.5-73.1); Platelet Count Result 126 k/mm3 (150-375); Red Blood Count 3.07 M/mm3 (4.2-5.4); Red Cell Distribution Width 14.6 % (11.5-14.5); White Blood Count 10.4 K/mm3 (4.5-10.0)
[2020-04-28] MEDS: IBUPROFEN 600 MG TABLET PO ×3 (04:43→16:15)
[2020-04-28] MEDS: HYDROcodone/acetaminophen (*CRX) 5-325 MG TABLET 1 TAB PO ×2 (04:44→16:16)
[2020-04-28] MEDS: MULTIVIT/MIN/PREN/FOL AC/IRON TABLET 1 TAB PO (07:27)
[2020-04-28] MEDS: DOCUSATE SODIUM 100 MG CAPSULE PO ×2 (07:27→16:16)
[2020-04-28] MEDS: POLYSACCHARIDE IRON COMPLEX 150 MG CAPSULE PO ×2 (07:27→16:16)
[2020-04-28] MEDS: BENZOCAINE 20% AER SPR (*SP) 56 GM CAN 1 SPRAY TOPICAL (07:27)
[2020-04-28] MEDS: WITCH HAZEL 40 PADS 1 PAD TOPICAL (07:27)
[2020-04-28] MEDS: LANOLIN (LANSINOH) 7.5 GM CREAM 1 APPLIC TOPICAL ×2 (07:28→16:17)
--- NOTE | 2020-04-28 07:44 | PM.OBPNVD ---
OB - PN: Subj Subjective Date/time seen: 04/28/20 07:44 Pain is improved today. Still significant edema of bilateral labia, ecchymosis worse today as expected. Chavez still in. BPs since blood transfusion 100s-130s/70s-80s. Denies depression. Bonding well with babies. Has not really ambulated much yet. Patient comments: other (pain improved at hematoma site, but still quite sore) baby status: doing well [place] feeding status: breast and bottle feeding OB - PN: Obj Data Labs CBC & Chem 7: 04/27/20 19:36 04/26/20 06:48 Labs: Laboratory Results - last 24 hr 04/26/20 04/27/20 06:48 19:36 WBC 10.4 H RBC 3.07 L Hgb 9.2 L Hct 27.2 L MCV 88.6 MCH 30.0 MCHC 33.8 RDW 14.6 H Plt Count 126 L MPV 12.1 H Immature Gran % (Auto) 0.7 H Neut % (Auto) 63.9 Lymph % (Auto) 25.3 [place] % (Auto) 8.9 H Eos % (Auto) 0.9 Baso % (Auto) 0.3 Lymph # (Auto) 2.62 [place] # (Auto) 0.9 H Eos # (Auto) 0.1 Baso # (Auto) 0.0 Abs Immat Gran (auto) 0.07 H Absolute Neuts (auto) 6.6 Absolute Nucleated RBC 0.0 Nucleated RBC % 0.0 % Immature Plt Fraction 10.3 Blood Type O Positive Antibody Screen Negative Crossmatch See Detail OB - PN A/P Plan day: 2 Comments: Given preeclampsia, twins, and especially large vulvar hematoma that is still quite edematous, will keep her overnight until tomorrow. She has not yet ambulated or voided on her own and pain is still significant. BPs stable. Hgb up to 9.2 from 7.7. Home tomorrow if ambulating and voiding well and able to take care of herself and babies at home. Time Spent With Patient Time: Total time spent is greater than 50% in coordination of care (as documented) at patient's floor/unit and/or counseling patient: Time with patient: less than 15 minutes Exam Narrative: Exam Narrative: NAD abdomen soft, nontender, fundus firm 2cm below the umbilicus Extremities nontender, 1+ edema external genitalia: still large edema but less than yesterday and skin not taut. ecchymosis ngoc of right labia where hematoma started.
[2020-04-28 08:00] VITALS: BP 125/74; PULSE 89; RESP 18; TEMP 36.3
--- NOTE | 2020-04-28 08:00 | PC.NURSE ---
Labias swollen. Rt. labia very bruised and soft to touch. Chavez cath dc'd and instructed pt. to let us know when needing to urinate. Pt. verbalized understanding. Dr. Rivera at bedside and examined labia swelling and bruising. No questions or concerns verbalized at this time.
[2020-04-28] MEDS: HYDROcodone/acetaminophen (*CRX) 10-325 MG TABLET 1 TAB PO (09:23)
--- NOTE | 2020-04-28 11:15 | PC.NURSE ---
Consulted with patient, reviewed infant feeding cues, frequencies, duration of feedings, feeding elimination flow sheet, and signs of adequate intake. Demonstrated stimulation techniques to wake infant for feeding. Assisted with infant ([place]) to breast. Reviewed positioning/alignment, holding breast and asymmetrical latch on. was able to latch correctly. Infant nursed eagerly, with steady draws and occasional swallowing noted. Reviewed signs of a correct latch, effective nursing and suck swallow ratio. was able to maintain latch without discomfort to mother. Nipple care reviewed. Instructed mother to call out for RN assistance if she is unable to latch infant for feeding or she has discomfort with nursing. Instructed feeding should be initiated three hours from start of last feeding or if feeding cues are noted before. Mother voiced understanding of information shared. Mom states that she is feeding Los via bottle due to him not latching at the breast. Mom encouraged to offer the breast to both babies if wanting them to breastfeed and to do bottle after. Mom states she is going to start pumping for Los at this time and will try once her milk is in. Encouraged mom to call out for assistance as she desires. Breast pump provided due to mother's request. Instructions given on breast pump care and usage, pumping schedule, nipple care, and collection and storage of breast milk. Encouraged [id number], breast massage and manual expression to stimulate supply. Assessed patient for correct flange size, placement and draw. Patient verbalizes and demonstrates understanding of instructions.
[2020-04-28 11:58] VITALS: BP 122/86; PULSE 76; RESP 20; TEMP 36.8
--- NOTE | 2020-04-28 12:04 | PC.NURSE ---
Pt. out of shower. Examined external labias. Soft to touch. Significant amount of bruising noted. Pt. states that she feels more tightness and throbbing on her right labia at this time. Pain medicine offered. Pt. resting quietly.
--- NOTE | 2020-04-28 12:28 | PCCCNOTE ---
Care Coordination. Pt. referred to for living arrangement concerns. Spoke with pt. at bedside at length. Pt. reports living with FOB in [place] and got right after finding out . Pt. reports their house wasn't very good living conditions, so she decided to move back up here near her family. Pt. has her own place through housing. Her sister is going to be helping her and maybe staying with her right after hospital stay to help. Pt. had baby shower and reports has all necessary baby car items. Sister also has counseling information that takes pt.'s insurance as pt. has history of some anxiety and depression. Pt. reports she feels good now and will keep in touch with her OB if things change with her mental status. Pt. reports being setup with WIC in [place] and got babies setup with 0-3 day program where they come to pt.'s house twice a month to help with development etc. Pt. reports no plans to return to [place] and actually considering [facility]. She reports wanting him to be in kids' lives but not sure she wants to be in relationship with him. Pt. denies any community resource needs.
[2020-04-28 16:00] VITALS: BP 128/82; PULSE 80; RESP 18; TEMP 36.6
[2020-04-28 20:45] VITALS: BP 126/80; PULSE 97; RESP 16; TEMP 36.7; O2SAT 99
[2020-04-29] MEDS: IBUPROFEN 600 MG TABLET PO ×3 (00:19→15:29)
[2020-04-29] MEDS: HYDROcodone/acetaminophen (*CRX) 5-325 MG TABLET 1 TAB PO (00:19)
[2020-04-29 04:40] VITALS: BP 131/78; PULSE 91
[2020-04-29 08:00] VITALS: PULSE 84; RESP 18; O2SAT 98
--- NOTE | 2020-04-29 08:04 | PM.OBPNVD ---
OB - PN: Subj Subjective Date/time seen: 04/29/20 08:04 Patient comments: pain well controlled [place] baby status: doing well Narrative: Feeling better, pain and swelling much improved. Able to urinate and had BM as well. OB - PN: Obj Data Labs CBC & Chem 7: 04/27/20 19:36 04/26/20 06:48 OB - PN A/P Plan day: 3 Plan: discharge home Comments: BPs remain stable. Vulva much improved edema, able to void and ambulate HOme today with FU 1 week. Time Spent With Patient Time: Total time spent is greater than 50% in coordination of care (as documented) at patient's floor/unit and/or counseling patient: Exam Narrative: Exam Narrative: NAD abdo soft, nontender, fundus firm 2cm below umb ext NT 1+ edema vulva: ecchymosis worse as expected. edema improved bilaterally, sutures still in tact.
[2020-04-29 08:10] VITALS: BP 126/80; PULSE 84; RESP 18; TEMP 36.8; O2SAT 98
--- NOTE | 2020-04-29 08:11 | PM.DS ---
DS: Admitting Diagnosis Admitting Diagnosis Admitting Diagnosis: di/di twins mild PreE term DS: Discharge Diagnosis Discharge Diagnosis (1) Vulvar and perineal hematoma, : Code(s): O71.7 - Obstetric hematoma of pelvis Status: Acute (2) Twin delivered vaginally: Code(s): O30.009 - Twin , unspecified number of placenta and unspecified number of amniotic sacs, unspecified trimester Status: Acute DS: Summary Hospital Course Reason for hospitalization: Admitted for induction at 37 weeks with di/di twins for mild preeclampsia. Hospital Course: Had x2. Received magnesium. Had large vulvar hematoma post delivery requiring surgical evacuation and repair. Received 2 units pRBCs PPD1 for severe anemia. Status at Discharge Functional status at discharge: independent ambulation Time Spent with Patient Time attestation: Total time spent providing and/or coordinating discharge services: Time spent: Less than 30 minutes Exam Narrative: Exam Narrative: NAD abdomen soft, appropriately tender Ext non tender, 1+ edema DS: Data Data Completed and Pending Completed studies during hospitalization: Pending at discharge 04/26/20 18:49 Surgical [PTH] Routine Discharge Plan Discharge Attending physician on discharge: Kayce Rivera Discharging Clinician: Kayce Rivera Anticipated Discharge Date/Time: 04/29/20 16:00 Patient Disposition: Home, Self-Care Activity: may shower and pelvic rest Diet: as tolerated Discharge Instructions: pelvic rest 6 weeks, FU in office 1 week Patient Instructions: Antibiotic Form Stand Alone Forms: General Discharge Information Follow-up/Referrals: Kayce Rivera MD [Physician] - (1 week) Discharge Medications: New ibuprofen 600 mg Tablet 600 mg PO Q6H PRN (Reason: Cramping) Qty: 60 RF: 1 polysaccharide iron complex 150 mg iron Capsule 150 mg PO BIDWM Qty: 60 RF: 1 Continued ferrous sulfate 47.5 mg iron Tablet Extended Release 143 mg PO DAILY RF: 0 PNV cmb#95-ferrous fumarate-FA [] 28 mg iron- 800 mcg Tablet 1 tablet PO DAILY RF: 0 Discontinued aspirin 81 mg Tablet 81 mg PO DAILY RF: 0 ondansetron HCl [Zofran] 4 mg Tablet 4 mg PO Q6H PRN (Reason: Nausea) RF: 0 nitrofurantoin monohyd/m-cryst [Macrobid] 100 mg Capsule 100 mg PO Q12H Qty: 14 RF: 0 Date of admission: 04/26/20 06:06 Primary Care Provider: Carl Payan Admitting Provider: Kayce Rivera Attending physician on admission: Kayce Rivera Condition: Stable
--- NOTE | 2020-04-29 09:29 | WPDANLDPN2 ---
Anes-Prog Note L&D Date/Time: 04/29/20 09:29 Comfortable throughout: labor and delivery Neuraxial method: epidural Neuro status: Neuro function grossly intact. Cardiovascular status: normal Respiratory status: normal Airway patency: baseline Mental status: baseline Post-Op hydration status: normal Vital Signs: Last Vital Signs Temp 36.7 C 04/28/20 20:45 Pulse 91 04/29/20 04:40 Resp 16 04/28/20 20:45 BP 131/78 04/29/20 04:40 Pulse Ox 99 04/28/20 20:45 Pain score (VAS): 0 I/O: Intake & Output 04/28/20 04/29/20 04/29/20 23:59 07:59 15:59 Intake Total 600 Output Total 400 Balance 200 Post-procedural complaints: none Patient feedback: Patient satisfied with anesthetic care.
[2020-04-29] MEDS: DOCUSATE SODIUM 100 MG CAPSULE PO (10:12)
[2020-04-29] MEDS: POLYSACCHARIDE IRON COMPLEX 150 MG CAPSULE PO (10:13)
[2020-04-29] MEDS: MULTIVIT/MIN/PREN/FOL AC/IRON TABLET 1 TAB PO (10:13)
--- NOTE | 2020-04-29 10:49 | PC.NURSE ---
Consulted with mom, reviewed with mom to use breast pump for any feeding that the babies are not going to breast or not latching on for long to encourage her milk supply. Encouraged mom to call out assistance with next feeding.
[2020-04-29] MEDS: MEASLES,MUMPS,RUBELLA VACCINE 0.5 ML VIAL SUB-Q (15:28)
--- NOTE | 2020-04-29 15:59 | PC.NURSE ---
Consulted with patient, reviewed signs of a correct latch, effective nursing and suck swallow ratio. Attempted to latch infant to breast with and without nipple shield. will latch but not continue sucking. sleepy at breast. Encouraged patient to keep offering the breast at each feeding with and without nipple shield. Told mom to pump for missed feedings and supplement infant as much as he desires. Instructed mother to call out for RN assistance if she is unable to latch for feeding or she has discomfort with nursing. Instructed feeding should be initiated three hours from start of last feeding or if feeding cues are noted before. Mother voiced understanding of information shared. Nipple shield provided to mother due to mom's choice when not latching well to the breast. Instructions given on application and cleaning of shield. Discussed nipple shield precautions and possible complications. Patient able to return demonstration on proper application of shield. Discussed the need to initiate pumping if continues to nurse with the shield. Patient verbalizes understanding.
--- NOTE | 2020-04-29 16:47 | PC.NURSE ---
1716-Mother discharged to No Care Bed.
[2020-05-03 09:25] VITALS: BP 134/88; PULSE 92; RESP 20; TEMP 36.6; O2SAT 99
== END 2020-04-29 16:45 | disposition home or self-care (01) | DRG 560 ==
LOC: ANHLDR 21:35 → ANHOBPP 23:09 → ANHOB2 04-27 08:28
PROVIDERS: Obstetrics & Gynecology; Admitting Provider Obstetrics & Gynecology; PCP Family Medicine; Visit Provider Obstetrics & Gynecology
PROC: 0UCM0ZZ Extirpation of Matter from Vulva, Open Approach (ICD-10-PCS; principal; 2020-04-26 21:00)
DX: O14.04 Mild to moderate pre-eclampsia, complicating childbirth (principal); Z37.2 Twins, both liveborn; Z3A.37 37 weeks gestation of pregnancy; O30.043 Twin pregnancy, dichorionic/diamniotic, third trimester; O70.1 Second degree perineal laceration during delivery; O71.7 Obstetric hematoma of pelvis; O99.214 Obesity complicating childbirth; E66.9 Obesity, unspecified; O90.81 Anemia of the puerperium
CPT/HCPCS: 36415; 36430; 80053; 84550; 85014; 85018; 85025; 85055; 86592; 86850; 86900; 86901; 86923; 88307; 90710; A9270; J0690; J2250; J2405; J2590; J2704; J2795; J3010; J3475; J7030; J7120; P9016